=== PATIENT | female | born 1945 | race Caucasian/White ===

== ENCOUNTER → 2018-02-02 15:45 | Outpatient (CLI) | payer OTHER, SELFPAY | PROVIDERS: Family Provider Family Medicine; PCP Family Medicine; Visit Provider Family Medicine | DX: R30.0 Dysuria (principal) | CPT/HCPCS: 87086 ==

== ENCOUNTER 2018-09-10 09:42 | Emergency (ER) | payer OTHER, SELFPAY ==
[2018-09-10 09:45] VITALS: BP 178/97; PULSE 103; RESP 13; TEMP 36.7; O2SAT 100; BMI 23.9
--- NOTE | 2018-09-10 09:57 | ED_ITS ---
HPI - Nausea/Vomiting/Diarrhea General Chief complaint: Nausea/Vomiting/Diarrhea Stated complaint: nausea headache x7 days Time Seen by Provider: 09/10/18 09:52 Source: patient Mode of arrival: ambulatory Limitations: no limitations History of Present Illness HPI Narrative: Patient is a 72-year-old female here for evaluation of sinus congestion and a cough for the past week. She has been seen at the walk-in clinic and was prescribed Tessalon Perles. She was also told to take Flonase. She states these medications have not helped. She also is complaining of a headache and generalized fatigue. She states that 1 time in the past she had a low sodium and she felt similar to this. She states she was drinking some Pedialyte this morning and started to not feel very well some generalized nausea. No specific abdominal pain. She came in for evaluation. Related Data Home Medications Medication Instructions Recorded Confirmed cholecalciferol (vitamin D3) 1 tab PO QDAY #0 10/23/16 09/09/18 [Vitamin D3] ibuprofen 2 tab PO HS #0 08/31/17 09/09/18 acyclovir 800 mg tablet 800 mg PO TID tab 02/02/18 09/09/18 aspirin 81 mg chewable tablet 1 tab PO DAILY tab 02/02/18 09/09/18 Previous Rx's Medication Instructions Recorded lisinopril 10 mg tablet 10 mg PO QDAY #90 tab 02/02/18 gabapentin 300 mg capsule 600 mg PO QDAY #180 cap 06/08/18 benzonatate 100 mg capsule 100 mg PO TID PRN #20 cap 09/09/18 codeine-guaifenesin 5 ml PO Q6H PRN #120 ml 09/10/18 ondansetron 4 mg PO Q6-8H PRN #10 tab 09/10/18 Allergies Allergy/AdvReac Type Severity Reaction Status Date / Time Penicillins [PENICILLINS] AdvReac Intermediate DELAYED Verified 09/10/18 09:54 REACTION OF STOMACH ISSUES Review of Systems Constitutional Reports fatigue, Denies fever(s), Reports headache(s) and Reports lethargy ENT Ears, Nose, Mouth, and Throat: Denies dizziness and Reports headache(s) Cardiovascular Denies chest pain and Denies dyspnea Respiratory Reports cough and Denies dyspnea Gastrointestinal Gastrointestinal: Denies abdominal pain, Denies change in bowel habits, Reports nausea and Denies vomiting Genitourinary Denies dysuria and Denies flank pain Musculoskeletal Reports myalgias and Denies arthralgias Integumentary/Breasts Denies rash Neurologic Denies confusion, Denies dizziness and Reports headache(s) Psychiatric Denies confusion Endocrine Reports fatigue Hematologic/Lymphatic Denies easy bleeding and Denies easy bruising PFSH Medical History Arthritis (Chronic) Herpes (Chronic) Hypertension (Chronic) Raynaud's syndrome (Chronic) Abnormal Pap smear of cervix (Resolved 2000) Campylobacter intestinal infection (Resolved) Giardia (Resolved) UTI (urinary tract infection) (Resolved 2009) Surgical History Status post loop electrosurgical excision procedure (LEEP) of cervix (Resolved 2001) Status post tubal ligation (Resolved) Family History Grandmother Breast cancer Cancer [place] (myocardial infarction) Father [place] (myocardial infarction) Mother MVA (motor vehicle accident) Brother No problems noted. Grandfather Stroke [place] (myocardial infarction) Grandmother Stroke Grandfather Cancer Social History Smoking Status: Former smoker Exam Initial Vital Signs Initial Vital Signs: Vital Signs Temperature 98.1 F 09/10/18 09:45 Pulse Rate 103 H 09/10/18 09:45 Respiratory Rate 13 09/10/18 09:45 Blood Pressure 178/97 H 09/10/18 09:45 Pulse Oximetry 100 09/10/18 09:45 Const General: cooperative, well developed, well groomed and No acute distress Orientation: alert, awake and oriented x3 HENMT Head: normal to inspection and normocephalic Resp Effort & Inspection: normal respiratory effort Auscultation: clear to auscultation bilaterally Cardio Rate: tachycardic Rhythm: regular rhythm Pulses: radial pulses present GI Inspection: non-distended Palpation: soft, No firm and No tender Skin Lesions: no lesions Rashes: no rashes Neuro General: alert, awake and oriented x3 Cognition: normal cognition Speech: speech normal Motor: muscle tone normal throughout Sensory Exam: no sensory deficits noted Extrem General: normal to inspection and capillary refill normal Psych Appearance: grossly normal and well kempt Course Orders Ordered: ED Orders 09/10/18 09:55 Basic Metabolic Panel Stat Complete Blood Count AUTO DIFF Stat 09/10/18 10:16 XR chest 1V Stat Discontinued Medications Acetaminophen (Tylenol) 975 mg PO NOW ONE Stop: 09/10/18 10:16 Last Admin: 09/10/18 10:28 Dose: 975 mg Sodium Chloride (Normal Saline 0.9%) 1,000 mls @ 1,000 mls/hr IV BOLUS ONE Stop: 09/10/18 11:14 Last Admin: 09/10/18 10:29 Dose: 1,000 mls/hr Ondansetron HCl (Zofran) 4 mg IV NOW ONE Stop: 09/10/18 10:16 Last Admin: 09/10/18 10:29 Dose: 4 mg Vital Signs - 8 hr 09/10/18 09:45 09/10/18 11:00 09/10/18 12:05 Temperature 98.1 F Pulse Rate 103 H 86 91 H Respiratory Rate 13 15 21 Blood Pressure 178/97 H Blood Pressure [Right Arm] 150/88 H 140/89 Pulse Oximetry 100 100 100 MDM - Nausea/Vomiting/Diarrhea Lab Data Attestation: I reviewed the patient's lab results. Result diagrams: 09/10/18 09:55 09/10/18 09:55 Lab Results 09/10/18 09/10/18 Range/Units 09:55 09:55 WBC 7.0 (4.5-11.0) X10^3/uL RBC 4.80 (4.0-5.2) X10^6/uL Hgb 15.3 (12.0-16.0) g/dL Hct 43.9 (36-46) % MCV 91.4 (80-100) fL MCH 31.9 (26-34) PG MCHC 34.9 (30-36) % RDW 12.3 (11.6-14.8) % Plt Count 310 (150-400) X10^3/uL Neut % (Auto) 74.3 (50-75) % Lymph % (Auto) 18.8 L (25-40) % [place] % (Auto) 6.1 (3-14) % Eos % (Auto) 0.3 L (2-4) % Baso % (Auto) 0.5 (0-2) % Neut # (Auto) 5200 (4982-5713) /uL Sodium 129 L (137-145) mmol/L Potassium 3.5 (3.4-5.1) mmol/L Chloride 89 L (98-107) mmol/L Carbon Dioxide 25 (22-32) mmol/L BUN 9 (7-17) mg/dL Creatinine 0.50 L (0.52-1.04) mg/dL Estimated GFR > 60.0 (>60) mL/min BUN/Creatinine Ratio 18.0 (6-22) Glucose 150 H (80-110) mg/dL Calcium 9.8 (8.4-10.2) mg/dL Imaging Data Chest x-ray: Radiologist's impression: PROCEDURE: XR CHEST 1V INDICATIONS: Cough and vomiting TECHNIQUE: One view of the chest was acquired. COMPARISON: [facility], CHEST 2 VIEW, 10/21/2007, 8:34. FINDINGS: Surgical changes and devices: None. Lungs and pleura: No pleural effusions or pneumothorax. Lungs are clear. Mediastinum: Mediastinal contours appear normal. Heart size is normal. Bones and chest wall: No suspicious bony lesions. Overlying soft tissues appear unremarkable. IMPRESSION: Normal for age, source of current cough symptoms is not seen. Dictated by: Bernard Gonzalez M.D. on 09/10/2018 at 10:32 Approved by: Bernard Gonzalez M.D. on 09/10/2018 at 10:33 [facility] Narrative Medical decision making narrative: Patient's sodium was slightly low however she states ?it is always low ?chest x-ray shows no signs of pneumonia. She has a benign exam today. I do suspect upper respiratory infection and sinus issues that are causing her headache. Low suspicion for meningitis. We did discuss a head CT however will hold on that for now. Patient is tolerating oral intake. Do not feel that she needs antibiotics. Do not feel she needs admitted to the hospital. We did discuss symptom treatment. She was given return precautions. She expressed understanding and agreement with plan. Discharge Plan Departure Patient Disposition: Home Clinical Impression: Acute upper respiratory infection, Headache, Hyponatremia Instructions: DI for Sinus Headache, DI for Nasal Congestion Activity Restrictions/Additional Instructions: I do recommend that you start taking either Claritin or Cheryl or Zyrtec. You can purchase these medications over the counter. I also recommend that you start taking Flonase or Nasonex these medications could also be purchased over- the-counter. I recommend you stop taking the yellow pills that you were given the other day. Your prescription for nausea medication his as needed. Return to the emergency department for any new or worsening symptoms Prescriptions: New codeine-guaifenesin 10-100 mg/5 mL liquid 5 ml PO Q6H PRN (Reason: cough) Qty: 120 RF: 0 ondansetron 4 mg tablet,disintegrating 4 mg PO Q6-8H PRN (Reason: nausea and vomiting) Qty: 10 RF: 0 No Action acyclovir [Zovirax] 800 mg tablet 800 mg PO TID RF: 0 aspirin 81 mg tablet,chewable 1 tab PO DAILY RF: 0 lisinopril 10 mg tablet 10 mg PO QDAY Qty: 90 RF: 1 benzonatate [Tessalon Perles] 100 mg capsule 100 mg PO TID PRN (Reason: cough) Qty: 20 RF: 0 gabapentin [Neurontin] 300 mg capsule 600 mg PO QDAY Qty: 180 RF: 1 cholecalciferol (vitamin D3) [Vitamin D3] 1,000 UNIT tablet 1 tab PO QDAY Qty: 0 RF: 0 ibuprofen 200 MG tablet 2 tab PO HS Qty: 0 RF: 0
--- NOTE | 2018-09-10 10:16 | DI.RAD.S_ITS ---
PROCEDURE: XR CHEST 1V INDICATIONS: Cough and vomiting TECHNIQUE: One view of the chest was acquired. COMPARISON: [facility], , CHEST 2 VIEW, 10/21/2007, 8:34. FINDINGS: Surgical changes and devices: None. Lungs and pleura: No pleural effusions or pneumothorax. Lungs are clear. Mediastinum: Mediastinal contours appear normal. Heart size is normal. Bones and chest wall: No suspicious bony lesions. Overlying soft tissues appear unremarkable. IMPRESSION: Normal for age, source of current cough symptoms is not seen. Dictated by: Bernard Gonzalez M.D. on 09/10/2018 at 10:32 Approved by: Bernard Gonzalez M.D. on 09/10/2018 at 10:33
[2018-09-10 10:27] LABS: Add Manual Diff / Slide Review NO; Basophils Percent Auto 0.5 % (0-2); Eosinophils Percent Auto 0.3 % (2-4); Hematocrit 43.9 % (36-46); Hemoglobin 15.3 g/dL (12.0-16.0); Lymphocytes Percent Auto 18.8 % (25-40); Mean Corpuscular HGB Conc 34.9 % (30-36); Mean Corpuscular Hemoglobin 31.9 PG (26-34); Mean Corpuscular Volume 91.4 fL (80-100); Monocytes Percent Auto 6.1 % (3-14); Neutrophils Absolute Auto 5200 /uL (1500-7000); Neutrophils Percent Auto 74.3 % (50-75); Platelet Count 310 X10^3/uL (150-400); Red Cell Distribution Width 12.3 % (11.6-14.8)
[2018-09-10] MEDS: ACETAMINOPHEN 325 MG TABLET 975 MG PO (10:28)
[2018-09-10] MEDS: SODIUM CHLORIDE 0.9% 1,000 ML 1000 ML IV (10:29)
[2018-09-10] MEDS: ONDANSETRON 4 MG/2 ML INJ IV (10:29)
[2018-09-10 10:33] LABS: Blood Urea Nitrogen 9 mg/dL (7-17); Calcium 9.8 mg/dL (8.4-10.2); Carbon Dioxide 25 mmol/L (22-32); Chloride 89 mmol/L (98-107); Estimated Glomerular Filt Rate > 60.0 mL/min (>60); Glucose 150 mg/dL (80-110); HEMOLYSIS < 15 (0-50); Potassium 3.5 mmol/L (3.4-5.1); Sodium 129 mmol/L (137-145)
[2018-09-10 11:00] VITALS: BP 150/88; PULSE 86; RESP 15; O2SAT 100
[2018-09-10 12:05] VITALS: BP 140/89; PULSE 91; RESP 21; O2SAT 100
== END 2018-09-10 12:43 | disposition home or self-care (01) ==
PROVIDERS: Emergency Provider Emergency Medicine; Family Provider Family Medicine; PCP Family Medicine
DX: J06.9 Acute upper respiratory infection, unspecified (principal); R51 Headache; E87.1 Hypo-osmolality and hyponatremia
CPT/HCPCS: 36415; 36591; 71045; 80048; 85025; 96361; 96374; 99283; 99284; J2405

== ENCOUNTER → 2018-09-20 10:03 | Outpatient (CLI) | payer OTHER, SELFPAY ==
--- NOTE | 2018-09-20 10:06 | DI.RAD.S_ITS ---
PROCEDURE: XR SACRUM COCCYX MIN 2V INDICATIONS: pelvic pain TECHNIQUE: 3 views of the sacrum and coccyx acquired. COMPARISON: None. FINDINGS: Bones: There is moderate sclerosis of the bilateral sacroiliac joints. No ankylosis. No fracture or dislocation. Soft tissues: Visualized bowel gas pattern is normal. No suspicious soft tissue densities. IMPRESSION: Bilateral sacroiliac joint sclerosis. Dictated by: Macey Wan M.D. on 09/20/2018 at 15:37 Approved by: Macey Wan M.D. on 09/20/2018 at 15:38
== END ==
PROVIDERS: Family Provider Family Medicine; PCP Family Medicine; Visit Provider Physical Medicine & Rehabilitation
DX: R10.2 Pelvic and perineal pain (principal); M53.3 Sacrococcygeal disorders, not elsewhere classified
CPT/HCPCS: 72220

== ENCOUNTER 2018-10-25 08:08 | Outpatient (CLI) | payer OTHER, SELFPAY ==
[2018-10-25] VITALS (9 sets, daily range): BP systolic 116–179; BP diastolic 67–98; PULSE 63–82; RESP 16–20; TEMP 36.3; O2SAT 98–100
--- NOTE | 2018-10-25 08:11 | DI.RAD.S_ITS ---
PROCEDURE: PAIN SI JOINT INJECTION SABAS COMPARISON: None. INDICATIONS: SPINAL STENOSIS FINDINGS: Fluoroscopic spot filming was performed to verify placement of spinal needles at the right and left sacroiliac joint , as labeled on the films. Appropriate location(s) of the needle tip(s) was confirmed by injection of iodinated contrast. Dictated by: Michael Romero M.D. on 10/25/2018 at 11:08 Approved by: Michael Romero M.D. on 10/25/2018 at 11:11
[2018-10-25] MEDS: MIDAZOLAM 5 MG/5 ML VIAL IV (09:10)
[2018-10-25] MEDS: BUPIVACAINE 0.5% (PF) VIAL 2 ML INJ (09:16)
[2018-10-25] MEDS: BETAMETHASONE 30 MG/5 ML MDV 12 MG INJ (09:17)
[2018-10-25] MEDS: IOPAMIDOL 15 ML VIAL 3 ML INJ (09:17)
--- NOTE | 2018-10-25 09:26 | PM.PROC.1 ---
Procedures Date/Time Date of procedure: 10/25/18 Time of procedure: 09:26 General Procedure description: PREOP Dx: Sacroiliac joint pain/DJD POST OP DX: Sacroiliac Joint Pain/DJD Procedures: Fluoroscopic guided contrast controlled bilateral sacroiliac joint injectiona Physician: Berry Adam D.O. Indications: Angelica is referred by Dr. Barnett for treatment of right sacroiliac joint DJD Description of procedure Fluoroscopic guided, contrast controlled right sacroiliac joint injection Following denial of allergies and review of potential side effects and complications, including, but not necessarily limited to, infection, allergic reaction, local tissue breakdown, temporary as well as permanent nerve injury, paralysis, stroke and possible , the patient indicated that they understood and agreed to proceed. An informed consent was signed by the patient, witnessed by a nurse, and placed in the patient's chart. Additionally, other treatment options including modalities, medications, and physical therapy were reviewed with the patient. After review of previous anaesthesic history and IV conscious sedation the patient was deemed safe to proceed with todays procedure with IV conscious sedation as ASA class II designation. Safety time-out was performed to confirm patient ID, procedure to be performed and site of procedure. IV sedation was accomplished with a combination of 3mg was administered by the RN after DO order, titrated to patient comfort during the course of the procedure while the patient remained responsive to all verbal commands In the prone position following sterile prep and drape of the pelvic region, the hyper lucency on in the inferior aspect of the sacroiliac joint was identified fluoroscopically the skin was anesthetized be a 25 gauge 1 eventual with approximately 2 cc of 1% lidocaine solution. At this point, a 22 gauge 3 in spinal needle was atraumatically introduced and advanced under fluoroscopic guidance into the inferior aspect of the right sacroiliac joint. Following negative aspiration, approximately 0.3 cc of Isovue-300 was injected confirming intra-articular placement without vascular uptake. Radiographic data, including multiple fluoroscopic views of the pelvis, reveals a spinal needle in the sacroiliac joint hyper lucent zone. Subsequent view show flow contrast tear superiorly and inferiorly within the joint capsule without vascular intrathecal uptake. At this point a total of 1 cc or 0 8 of 0.5% Marcaine was combined with 1 cc of 6 mg of betamethasone was injected without incident. Attention was then refocused to the left sacroliac joint where the procedure was replicated. The procedure tolerated the procedure well without signs or symptoms of complications prior to transfer to the recovery area continued monitoring without incident. The patient was then transferred to the recovery area with a bur observed for an appropriate time after the injection. The patient reverted a vas score of 7 prior to the procedure and postprocedure vas of 1. Total fluoroscopy time: 22.7 sec Total conscious sedation time: 24 min Postop instructions The patient was provided with a pain like to continue to record the patient's response to the target specific procedure prior to the patient's follow-up visit with the referring physician. Additionally, specific post injection care instructions and a contact number to our office were provided if concerns arise regarding the possible complications associated with procedure are suspected. Berry Adam D.O. Complications: none
--- NOTE | 2018-10-26 12:36 | PC.NURSE ---
FOLLOW UP CALL MADE, PT C/O CONTINUED PAIN THAT HAS NOT SUBSIDED AND FEELS THE SAME BEFORE THE PROCEDURE. I EXPLAINED TO HER THAT IT IS COMMON TO HAVE PAIN THE NIGHT OF AND DAY AFTER PROCEDURE BUT ENCOURAGED HER TO CALL THE CLINIC IF BY NEXT WEEK THE PAIN HAD NOT DECREASED. PT VERBALIZED UNDERSTANDING OF THESE INSTRUCTIONS AND DENIED OTHER QUESTIONS/CONCERNS.
== END 2018-10-25 09:50 ==
LOC: RAD 08:10
PROVIDERS: PCP Family Medicine; Visit Provider Physical Medicine & Rehabilitation
DX: M53.3 Sacrococcygeal disorders, not elsewhere classified (principal); M47.898 Other spondylosis, sacral and sacrococcygeal region; M48.07 Spinal stenosis, lumbosacral region
CPT/HCPCS: 27096; 99152; J0702; J2250

== ENCOUNTER 2018-12-27 14:27 | Outpatient (CLI) | payer OTHER, SELFPAY ==
[2018-12-27] VITALS (7 sets, daily range): BP systolic 115–180; BP diastolic 79–97; PULSE 64–74; RESP 16–18; TEMP 36.4; O2SAT 97–100
--- NOTE | 2018-12-27 14:30 | DI.RAD.S_ITS ---
PROCEDURE: PAIN L/S TRANSFORAMINAL INJECT INDICATIONS: SPINAL STENOSIS FINDINGS: Fluoroscopic spot filming was performed to verify placement of spinal needles at the L4-5 facet joint level, as labeled on the films. Appropriate location(s) of the needle tip(s) was confirmed by injection of iodinated contrast. IMPRESSION: Successful left-sided L4-5 facet localization for steroid injection. Dictated by: Bernard Gonzalez M.D. on 12/27/2018 at 17:38 Approved by: Bernard Gonzalez M.D. on 12/27/2018 at 17:38
[2018-12-27] MEDS: fentaNYL 100 MCG/2 ML INJ 50 MCG IV (15:20)
[2018-12-27] MEDS: MIDAZOLAM 5 MG/5 ML VIAL IV (15:20)
[2018-12-27] MEDS: BUPIVACAINE 0.25% (PF) VIAL 2 ML INJ (15:27)
[2018-12-27] MEDS: DEXAMETHASONE 10 MG/ML VIAL 20 MG INJ (15:27)
[2018-12-27] MEDS: IOPAMIDOL 15 ML VIAL 3 ML INJ (15:27)
--- NOTE | 2018-12-27 15:36 | PC.NURSE ---
pt tolerated procedure well. Able to get pt off the table with standby assist. Transferred the pt to pre procedure room via wheelchair for continued monitoring with Briana SERRANO.
--- NOTE | 2018-12-27 15:50 | P.PCN_ITS ---
Procedures Date/Time Date of procedure: 12/27/18 Time of procedure: 15:48 General Procedure description: PREOP DIAGNOSIS 1. FORMAINAL STENOSIS WITH LE SYMPTOMS POST OP DIAGNOSIS 1. FORMAINAL STENOSIS WITH LE SYMPTOMS PROCEDURES 1. FLUOROSCOPICALLY GUIDED CONTRAST CONTROLLED TRANSFORAMINAL EPIDURAL STEROID INJECTION - LEFT L4/5 PHYSICIAN: Berry Adam DO INDICATIONS: Angelica is referred by Dr. Barnett for treatment of Foraminal Stenosis with Left LE Symptoms FINDINGS Foraminal Nerve Root Compression secondary to disc disease and facet hypertrophy DESCRIPTION OF PROCEDURE: Following denial of allergy and review of potential side effects and complications, including, but not necessarily limited to, infection, allergic reaction, local tissue breakdown, stroke, temporary or permanent nerve injury, paralysis, and possible , the patient indicated that the patient understood and agreed to proceed. An informed consent document was signed by the patient, witnessed by a nurse, and placed in the patient's chart. Additionally, other treatment options including medications, modalities, and physical therapy were reviewed with the patient. After review of previous anaesthesic history and IV conscious sedation the patie nt was deemed safe to proceed with todays procedure with IV conscious sedation as ASA class II designation. Safety time-out was performed to confirm patient ID, procedure to be performed and site of procedure. IV sedation was accomplished with a combination of 4mg of Versed and 50mcg of Fentanyl was administered by the RN after DO order, titrated to patient comfort during the course of the procedure while the patient remained responsive to all verbal commands In the prone position following sterile prep and drape of the lumbar region, the left L4/5 posterior neuroforamen was identified fluoroscopically. The skin was anesthetized via a 25-gauge 1.5-inch needle with 1% lidocaine solution. At this point, a 25-gauge 3.5-inch spinal needle was atraumatically introduced and advanced under fluoroscopic guidance through the posterior left L4/5 neuroforamen to approximately the anterior aspect of the canal. Depth was confirmed on lateral view. Following negative aspiration, injection of approximately 1.5 cc of Isovue 200 under live fluoroscopy in the AP view confirmed excellent flow along the nerve root, into the epidural space without vascular or intrathecal uptake observed Radiological data, including multiple fluoroscopic views of the lumbosacral spine, reveal a spinal needle at the left L4/5 posterior neuroforamen. Subsequent views show flow of contrast material flowing superiorly and inferiorly along the nerve root confirming epidural flow. Subsequently, a test dose of 1.5 cc of 1% lidocaine solution was administered and patient was observed for two minutes for signs or symptoms of complications, including abdominal pain, shortness of breath, bilateral upper or lower extremity weakness, nausea and vomiting, prior to steroid injection. At this point, a total of 2cc or 20mg of dexamethasone was injected without incident. The procedure tolerated the procedure well without signs or symptoms of complications prior to transfer to the recovery area continued monitoring without incident. The patient was then transferred to the recovery area where they were observed for an appropriate time after the injection. The patient reported a VAS score of 7 prior to the procedure and a post- procedure VAS of 0. Total Fluoroscopy Time: 20.9 seconds Total Conscious Sedation Time: 24min POST OP INSTRUCTIONS The patient was provided a Pain Log to continue to record their response to the target-specific procedure prior to follow-up visit with their referring physician. Additionally, specific post-injection care instructions and a contact number to our office were provided if concerns arise regarding possible complications associated with the procedure are suspected. Berry Adam DO Complications: none
--- NOTE | 2018-12-28 12:16 | PC.NURSE ---
Follow up call post L4/5 Transforaminal MAYRA, left message as pt did not answer the phone.
== END 2018-12-27 16:20 | disposition home or self-care (01) ==
LOC: RAD 14:29
PROVIDERS: PCP Family Medicine; Visit Provider Physical Medicine & Rehabilitation
DX: M47.817 Spondylosis without myelopathy or radiculopathy, lumbosacral region (principal); M48.07 Spinal stenosis, lumbosacral region
CPT/HCPCS: 64483; 99152; J1100; J2250; J3010

== ENCOUNTER → 2019-01-03 09:15 | Outpatient (CLI) | payer OTHER, SELFPAY ==
--- NOTE | 2019-01-03 09:16 | DI.MG.S_ITS ---
BILATERAL DIGITAL SCREENING MAMMOGRAM 3D/2D WITH CAD: 01/03/2019 CLINICAL: Routine screening. Family history of breast cancer. Comparison is made to exams dated: 12/30/2017 mammogram, 12/10/2016 mammogram, and 12/10/2015 mammogram - [facility]. There are scattered fibroglandular elements in both breasts. Current study was also evaluated with a Computer Aided Detection (CAD) system. No significant masses, calcifications, or other findings are seen in either breast. There has been no significant interval change. IMPRESSION: NEGATIVE There is no mammographic evidence of malignancy. A 1 year screening mammogram is recommended. This exam was interpreted at Station ID: [id number]. NOTE: For mammograms, a report in lay terms will be sent to the patient. Approximately 15% of breast malignancies will not be visualized mammographically. In the management of a palpable breast mass, a negative mammogram must not discourage biopsy of a clinically suspicious lesion. Electronically Signed By: Dao muñoz/renee:01/03/2019 12:22:34 letter sent: Normal Exam ACR BI-RADS Category 1: Negative [id number]
== END ==
PROVIDERS: PCP Family Medicine; Visit Provider Family Medicine
DX: Z12.31 Encounter for screening mammogram for malignant neoplasm of breast (principal); Z80.3 Family history of malignant neoplasm of breast
CPT/HCPCS: 77063; 77067

== ENCOUNTER → 2019-01-05 08:22 | Outpatient (CLI) | payer OTHER, SELFPAY ==
[2019-01-05 09:21] LABS: Add Manual Diff / Slide Review NO; Basophils Absolute Auto 0 /uL (0-100); Basophils Percent Auto 0.9 % (0-2); Eosinophils Absolute Auto 100 /uL (0-450); Eosinophils Percent Auto 3.2 % (2-4); Hematocrit 42.5 % (36-46); Hemoglobin 14.5 g/dL (12.0-16.0); Lymphocytes Absolute Auto 1200 /uL (1100-4500); Lymphocytes Percent Auto 33.2 % (25-40); Mean Corpuscular Hemoglobin 31.7 PG (26-34); Mean Corpuscular Volume 93.1 fL (80-100); Monocytes Absolute Auto 400 /uL (0-900); Neutrophils Absolute Auto 1900 /uL (1500-7000); Neutrophils Percent Auto 52.7 % (50-75); Platelet Count 228 X10^3/uL (150-400); Red Blood Cell Count 4.56 X10^6/uL (4.0-5.2); Red Cell Distribution Width 13.1 % (11.6-14.8); White Blood Cell Count 3.6 X10^3/uL (4.5-11.0)
[2019-01-05 09:47] LABS: Alanine Aminotransferase 27 IU/L (9-52); Albumin 4.5 g/dL (3.5-5.0); Albumin Globulin Ratio 1.8 (1.0-2.8); Alkaline Phosphatase 56 U/L (38-126); Aspartate Aminotransferase 26 IU/L (14-36); BUN Creatinine Ratio 23.8 (6-22); Bilirubin Total 0.7 mg/dL (0.2-1.3); Blood Urea Nitrogen 19 mg/dL (7-17); Calcium 9.6 mg/dL (8.4-10.2); Carbon Dioxide 30 mmol/L (22-32); Chloride 94 mmol/L (98-107); Cholesterol 250 mg/dL (140-199); Estimated Glomerular Filt Rate > 60.0 mL/min (>60); Globulin 2.5 g/dL (1.7-4.1); Glucose 81 mg/dL (80-110); HDL Cholesterol 82 mg/dL (40-60); HEMOLYSIS < 15 (0-50); LDL Cholesterol Calculated 151 mg/dL (<100); Potassium 4.1 mmol/L (3.4-5.1); Sodium 130 mmol/L (137-145); Triglycerides 85 mg/dL (35-150)
[2019-01-05 10:36] LABS: Thyroid Stimulating Hormone 1.26 uIU/mL (0.47-4.68)
[2019-01-05 11:31] LABS: Hemoglobin A1C% w Est Avg Glu 5.4 % (4.0-6.0)
== END ==
PROVIDERS: PCP Family Medicine; Visit Provider Family Medicine
DX: I10 Essential (primary) hypertension (principal); R73.09 Other abnormal glucose; R73.9 Hyperglycemia, unspecified; Z51.81 Encounter for therapeutic drug level monitoring
CPT/HCPCS: 36415; 80053; 80061; 83036; 84443; 85025

== ENCOUNTER → 2019-09-08 15:39 | Outpatient (CLI) | payer OTHER, SELFPAY ==
[2019-09-08 17:14] LABS: Add Manual Diff / Slide Review NO; Basophils Absolute Auto 0 /uL (0-100); Basophils Percent Auto 0.8 % (0-2); Eosinophils Absolute Auto 100 /uL (0-450); Eosinophils Percent Auto 2.5 % (2-4); Hemoglobin 14.2 g/dL (12.0-16.0); Lymphocytes Absolute Auto 1800 /uL (1100-4500); Lymphocytes Percent Auto 33.5 % (25-40); Mean Corpuscular HGB Conc 33.9 % (30-36); Mean Corpuscular Hemoglobin 32.1 PG (26-34); Mean Corpuscular Volume 94.7 fL (80-100); Monocytes Absolute Auto 400 /uL (0-900); Monocytes Percent Auto 8.3 % (3-14); Neutrophils Absolute Auto 2900 /uL (1500-7000); Neutrophils Percent Auto 54.9 % (50-75); Platelet Count 211 X10^3/uL (150-400); Red Blood Cell Count 4.44 X10^6/uL (4.0-5.2); Red Cell Distribution Width 13.5 % (11.6-14.8); White Blood Cell Count 5.2 X10^3/uL (4.5-11.0)
[2019-09-08 17:24] LABS: BUN Creatinine Ratio 34.3 (6-22); Blood Urea Nitrogen 24 mg/dL (7-17); Calcium 9.7 mg/dL (8.4-10.2); Carbon Dioxide 28 mmol/L (22-32); Chloride 95 mmol/L (98-107); Estimated Glomerular Filt Rate > 60.0 mL/min (>60); Glucose 82 mg/dL (80-110); HEMOLYSIS < 15 (0-50); Potassium 4.5 mmol/L (3.4-5.1); Sodium 133 mmol/L (137-145); Uric Acid 3.8 mg/dL (2.5-6.2)
[2019-09-08 17:35] LABS: Erythrocyte Sedimentation Rate 4 MM/HR (0-20)
== END ==
PROVIDERS: PCP Family Medicine; Visit Provider Family Medicine
DX: M79.676 Pain in unspecified toe(s) (principal); M19.90 Unspecified osteoarthritis, unspecified site; I10 Essential (primary) hypertension
CPT/HCPCS: 36415; 80048; 84550; 85025; 85651

== ENCOUNTER → 2019-10-16 09:44 | Outpatient (CLI) | payer OTHER, SELFPAY ==
[2019-10-18 15:25] LABS: Fecal Immunochemical Test NOT DETECTED (NOT DETECTED)
== END ==
PROVIDERS: PCP Student in an Organized Health Care Education/Training Program; Referring Provider Student in an Organized Health Care Education/Training Program; Visit Provider Student in an Organized Health Care Education/Training Program
DX: Z12.11 Encounter for screening for malignant neoplasm of colon (principal)
CPT/HCPCS: 82274

== ENCOUNTER → 2019-12-06 08:59 | Outpatient (CLI) | payer OTHER, SELFPAY ==
[2019-12-06 09:41] LABS: Alanine Aminotransferase 20 IU/L (<35); Albumin 4.8 g/dL (3.5-5.0); Albumin Globulin Ratio 1.7 (1.0-2.8); Alkaline Phosphatase 69 U/L (38-126); Aspartate Aminotransferase 32 IU/L (14-36); BUN Creatinine Ratio 30.4 (6-22); Bilirubin Total 0.4 mg/dL (0.2-1.3); Blood Urea Nitrogen 24 mg/dL (7-17); Calcium 9.8 mg/dL (8.4-10.2); Carbon Dioxide 29 mmol/L (22-32); Chloride 96 mmol/L (98-107); Estimated Glomerular Filt Rate > 60.0 mL/min (>60); Globulin 2.8 g/dL (1.7-4.1); Glucose 77 mg/dL (80-110); HEMOLYSIS < 15 (0-50); Potassium 5.2 mmol/L (3.4-5.1); Sodium 133 mmol/L (137-145); Total Protein 7.6 g/dL (6.3-8.2)
== END ==
PROVIDERS: PCP Student in an Organized Health Care Education/Training Program; Referring Provider Student in an Organized Health Care Education/Training Program; Visit Provider Student in an Organized Health Care Education/Training Program
DX: I10 Essential (primary) hypertension (principal); Z79.899 Other long term (current) drug therapy
CPT/HCPCS: 36415; 80053

== ENCOUNTER 2020-03-18 08:29 | Emergency (ER) | payer OTHER, SELFPAY ==
--- NOTE | 2020-03-18 08:51 | DI.RAD.S_ITS ---
PROCEDURE: XR FOREARM RT 2V INDICATIONS: fall to arm, swelling noted in FA TECHNIQUE: 2 views of the forearm were acquired. COMPARISON: None. FINDINGS: Bones: No fractures or dislocations. No suspicious bony lesions. Soft tissues: No suspicious soft tissue calcifications or masses. IMPRESSION: No fracture. No osseous lesion. If symptoms and/or clinical suspicion for pathology persists, further assessment with repeat radiographs (7-10 days) or advanced imaging (e.g. CT, MRI or bone scan) may be helpful. Dictated by: Lindsay Newby MD, PhD on 03/18/2020 at 9:35 Approved by: Lindsay Newby MD, PhD on 03/18/2020 at 9:36
--- NOTE | 2020-03-18 08:51 | DI.RAD.S_ITS ---
PROCEDURE: XR ELBOW RT MIN 3V INDICATIONS: fall to arm, swelling noted in FA TECHNIQUE: 3 views of the elbow were acquired. COMPARISON: None. FINDINGS: Bones: No fractures or dislocations. No suspicious bony lesions. Soft tissues: No elbow joint effusion. No suspicious soft tissue calcifications. IMPRESSION: No acute fractures of the right elbow. Dictated by: Maged Ruggiero M.D. on 03/18/2020 at 8:24 Approved by: Maged Ruggiero M.D. on 03/18/2020 at 8:25
[2020-03-18 08:53] VITALS: BP 185/97; PULSE 74; RESP 16; TEMP 36.7; O2SAT 100; BMI 24.3
--- NOTE | 2020-03-18 09:00 | DI.RAD.S_ITS ---
PROCEDURE: XR RIBS RT MIN 3V W CXR 1V INDICATIONS: fall on ribs, pain TECHNIQUE: 2 views of the right ribs were acquired, along with a single view chest. COMPARISON: [facility], , XR CHEST 1V, 09/10/2018, 10:38. FINDINGS: Surgical changes and devices: None. Bones and chest wall: No fractures or dislocations. No suspicious bony lesions. Overlying soft tissues appear unremarkable. S-shaped scoliotic curvature is seen. Age-appropriate bony degenerative changes are seen. Lungs and pleura: No pleural effusions or pneumothorax. Lungs appear clear. Mediastinum: Mediastinal contours appear normal. Heart size is normal. IMPRESSION: No displaced rib fracture or pneumothorax can be seen on the right side. If there is strong clinical concern for intrathoracic trauma, then please consider a dedicated chest CT with IV contrast for further evaluation. Dictated by: Junaid Moore M.D. on 03/18/2020 at 8:54 Approved by: Junaid Moore M.D. on 03/18/2020 at 8:57
[2020-03-18] MEDS: ONDANSETRON 4 MG ODT SL (09:47)
[2020-03-18] MEDS: HYDROMORPHONE 1 MG INJ IM (09:47)
[2020-03-18 10:02] LABS: Add Manual Diff / Slide Review NO; Basophils Absolute Auto 0 /uL (0-100); Basophils Percent Auto 0.4 % (0-2); Eosinophils Absolute Auto 0 /uL (0-450); Eosinophils Percent Auto 0.8 % (2-4); Hematocrit 41.9 % (36-46); Hemoglobin 14.4 g/dL (12.0-16.0); Lymphocytes Absolute Auto 1200 /uL (1100-4500); Lymphocytes Percent Auto 20.3 % (25-40); Mean Corpuscular HGB Conc 34.4 % (30-36); Mean Corpuscular Hemoglobin 32.3 PG (26-34); Monocytes Absolute Auto 300 /uL (0-900); Monocytes Percent Auto 5.5 % (3-14); Neutrophils Absolute Auto 4200 /uL (1500-7000); Platelet Count 189 X10^3/uL (150-400); Red Blood Cell Count 4.46 X10^6/uL (4.0-5.2); Red Cell Distribution Width 13.4 % (11.6-14.8); White Blood Cell Count 5.8 X10^3/uL (4.5-11.0)
[2020-03-18 10:13] LABS: BUN Creatinine Ratio 32.8 (6-22); Blood Urea Nitrogen 21 mg/dL (7-17); Calcium 9.6 mg/dL (8.4-10.2); Carbon Dioxide 28 mmol/L (22-32); Chloride 96 mmol/L (98-107); Estimated Glomerular Filt Rate > 60.0 mL/min (>60); Glucose 104 mg/dL (80-110); HEMOLYSIS < 15 (0-50); Potassium 4.2 mmol/L (3.4-5.1); Sodium 130 mmol/L (137-145)
[2020-03-18 10:22] LABS: Prothrombin Time 11.8 SECONDS (10.1-12.7)
[2020-03-18 10:25] LABS: PTT Partial Thromboplastin Tim 35 SECONDS (26.4-36.2)
--- NOTE | 2020-03-18 10:35 | ED.TRAUMA ---
HPI - Trauma General Chief Complaint: Extremity Injury, Upper Stated Complaint: injured right arm Time Seen by Provider: 03/18/20 09:14 Source: patient Mode of arrival: Ambulatory Limitations: no limitations History of Present Illness HPI narrative: CC: Trip and fall injuring her right arm. HPI: The patient is a 74-year-old female who was hiking and walking on a trail with her using 2 walking sticks when she tripped and fell over a root and landed on her right arm and walking stick. She denies striking her head or injuring her neck. She denied any back pain. She however has some degree of chronic back pain. She complains complaining that she injured her left ribs and had some mild shortness of breath. She states that it hurts to breathe. She denies being dizzy or lightheaded. She had no loss of consciousness. She denies any abdominal pain nausea or vomiting. She sustained a hematoma to her right forearm and an abrasion to her right elbow and right arm. Her last tetanus shot was greater than 10 years ago. The patient complains that her arm pain is 6/10 in intensity in her chest pain was 7/10 in intensity. She denied any incontinence of urine or stool. She had no nausea no vomiting no fever chills or sweats and no significant shortness of breath. Related Data Home Medications Medication Instructions Recorded Confirmed cholecalciferol (vitamin D3) 1 tab PO QDAY #0 10/23/16 12/20/19 [Vitamin D3] acetaminophen 650 mg 650 mg PO ONCE 01/03/19 12/20/19 tablet,extended release Previous Rx's Medication Instructions Recorded valsartan 80 mg tablet 80 mg PO DAILY #90 tab 10/06/19 efinaconazole 10 % topical 1 applictn TOP DAILY #8 ml 12/20/19 solution with applicator celecoxib 200 mg capsule 200 mg PO DAILY #90 cap 01/03/20 acyclovir 400 mg tablet 400 mg PO DAILY #90 tab 01/31/20 gabapentin 600 mg tablet 600 mg PO DAILY #90 tab 02/27/20 cyclobenzaprine 10 mg PO TID PRN #15 tab 03/18/20 hydrocodone-acetaminophen [Fairhaven] 1 tab PO Q4-6H PRN #15 tab 03/18/20 lidocaine [Lidoderm] 2 patch TOP DAILY #15 each 03/18/20 Allergies Allergy/AdvReac Type Severity Reaction Status Date / Time Penicillins [PENICILLINS] AdvReac Intermediate DELAYED Verified 12/20/19 13:15 REACTION OF STOMACH ISSUES terbinafine AdvReac Intermediate Erythema Verified 12/20/19 13:32 multiforme Review of Systems Review of Systems Narrative: Review of systems were all negative except for those mentioned in the history of present illness. Patient History Medical History Abnormal Pap smear of cervix (Resolved 2000) Arthritis (Chronic) Campylobacter intestinal infection (Resolved) Giardia (Resolved) Herpes (Chronic) Hypertension (Chronic) Raynaud's syndrome (Chronic) UTI (urinary tract infection) (Resolved 2009) Surgical History S/P total hip arthroplasty (Resolved) Status post loop electrosurgical excision procedure (LEEP) of cervix (Resolved 2001) Status post tubal ligation (Resolved) Family History Grandmother Breast cancer Cancer ID (myocardial infarction) Father ID (myocardial infarction) Mother MVA (motor vehicle accident) Brother No problems noted. Grandfather Stroke ID (myocardial infarction) Grandmother Stroke Grandfather Cancer Social History Smoking Status: Former smoker Smoking Status: Former smoker alcohol intake frequency: 0-2 drinks per day Substance Use Type: does not use Exam Narrative Exam Narrative: PHYSICAL EXAM: CONSTITUTIONAL: Awake, Alert, Oriented, Coherent, Cooperative in NAD. Does not appear toxic or ill. HEAD: AT/NC EENT: PERRL, FROM of eyes, no discharge,. NOSE:No epistaxis or nasal drainage MOUTH:Oral mucosa is moist and pink, posterior pharynx is without erythema or exudate. NECK: Supple, no obvious JVD, Trachea is midline without stridor, no palpable LN. SPINE: Palpation of the cervical, Thoracic, Lumbar or Sacral spine reveals no gross deformity or tenderness. No CVA tenderness. THORAX: No deformity, retractions. Right lower lateral ribs are tender. LUNGS: Clear, symmetrical breath sounds without respiratory distress. HEART: Normal heart tones, regular rhythm and rate without murmur. ABDOMEN: Soft, non-tender, no guarding, rebound, rigidity or palpable mass. LYMPHATIC: no palpable lymph nodes or spleen. EXTREMITIES: The patient is able to flex her right elbow. She has an abrasion over the ulnar aspect of the proximal forearm just distal to the elbow and an elliptical hematoma over the ulna and more distally has a deeper abrasion over her forearm. SKIN: No other rash, bruising, petechiae or purpura noted NEURO: Awake, alert, oriented, conversive, cranial nerves II-XII are symmetrical , moves all 4 extremities and is ambulatory. MENTAL HEALTH: Does not appear anxious or depressed. Initial Vital Signs Initial Vital Signs: Vital Signs Temperature 98.1 F 03/18/20 08:53 Pulse Rate 74 03/18/20 08:53 Respiratory Rate 16 03/18/20 08:53 Blood Pressure 185/97 H 03/18/20 08:53 Pulse Oximetry 100 03/18/20 08:53 Course Course Course Narrative: 1030: The patient's x-rays were read by Radiology and there were no rib fractures and no fractures of the arm. The patient will be treated as outlined. Orders Ordered: Discontinued Medications Bacitracin (Bacitracin) 1 applic TOP NOW ONE Stop: 03/18/20 10:24 Hydromorphone HCl (Dilaudid) 1 mg IM NOW ONE Stop: 03/18/20 09:33 Last Admin: 03/18/20 09:47 Dose: 1 mg Documented by: CAITIE Ondansetron HCl (Zofran Odt) 4 mg SL NOW ONE Stop: 03/18/20 09:33 Last Admin: 03/18/20 09:47 Dose: 4 mg Documented by: CAITIE Vital Signs Vital signs: Vital Signs - 8 hr 03/18/20 08:53 Temperature 98.1 F Pulse Rate 74 Respiratory Rate 16 Blood Pressure 185/97 H Pulse Oximetry 100 MDM - Trauma Lab Data Result diagrams: 03/18/20 09:52 03/18/20 09:52 Labs: Lab Results 03/18/20 03/18/20 03/18/20 Range/Units 09:52 09:52 10:10 WBC 5.8 (4.5-11.0) X10^3/uL RBC 4.46 (4.0-5.2) X10^6/uL Hgb 14.4 (12.0-16.0) g/dL Hct 41.9 (36-46) % MCV 94.0 (80-100) fL MCH 32.3 (26-34) PG MCHC 34.4 (30-36) % RDW 13.4 (11.6-14.8) % Plt Count 189 (150-400) X10^3/uL Neut % (Auto) 73.0 (50-75) % Lymph % (Auto) 20.3 L (25-40) % [place] % (Auto) 5.5 (3-14) % Eos % (Auto) 0.8 L (2-4) % Baso % (Auto) 0.4 (0-2) % Neut # (Auto) 4200 (9627-8833) /uL Lymph # (Auto) 1200 (1417-9475) /uL [place] # (Auto) 300 (0-900) /uL Eos # (Auto) 0 (0-450) /uL Baso # (Auto) 0 (0-100) /uL PT 11.8 (10.1-12.7) SECONDS INR 1.0 (0.9-1.3) APTT 35 (26.4-36.2) SECONDS Sodium 130 L (137-145) mmol/L Potassium 4.2 (3.4-5.1) mmol/L Chloride 96 L (98-107) mmol/L Carbon Dioxide 28 (22-32) mmol/L BUN 21 H (7-17) mg/dL Creatinine 0.64 (0.52-1.04) mg/dL Estimated GFR > 60.0 (>60) mL/min BUN/Creatinine Ratio 32.8 H (6-22) Glucose 104 (80-110) mg/dL Calcium 9.6 (8.4-10.2) mg/dL Discharge Plan Departure Patient Disposition: Home Clinical Impression: Traumatic injury of rib, Abrasion Arm injury Qualifiers: Encounter type: initial encounter Laterality: right Qualified Code(s): S49.91XA - Unspecified injury of right shoulder and upper arm, initial encounter Hematoma of arm Qualifiers: Encounter type: initial encounter Laterality: right Qualified Code(s): S40.021A - Contusion of right upper arm, initial encounter Discharge Date/Time: 03/18/20 10:51 Instructions: DI for Rib Fracture, DI for Rib Contusion, DI for Hematoma (Bruise), DI for Abrasion Activity Restrictions/Additional Instructions: 1. If your pain does not improve you need to be rechecked in 48-72 hours. You can return to the emergency department or follow-up with your primary care physician. 2. Use the sling for your right arm for pain and discomfort as a comfort measure. 3. Apply cold compresses to the hematoma and the bruise over your right arm. 4. Wash the abrasions over your right elbow and forearm in the shower with soap and water pat dry apply a triple antibiotic and cover with a bandage. 5. Wrap your hematoma with an Iain wrap. 6. Use the Fairhaven for severe pain and discomfort as prescribed. Use the dicyclomine as a muscle relaxant. Apply the Lidoderm patch directly over the area of your rib and chest tenderness and discomfort. 7. If you develop worsening pain fever passing-out, abdominal pain nausea vomiting you need to return to the emergency department. Prescriptions: New hydrocodone-acetaminophen [Fairhaven] 5-325 mg tablet 1 tab PO Q4-6H PRN (Reason: pain) Qty: 15 RF: 0 cyclobenzaprine 10 mg tablet 10 mg PO TID PRN (Reason: muscle spasm) Qty: 15 RF: 0 lidocaine [Lidoderm] 5 % adhesive patch,medicated 2 patch TOP DAILY Qty: 15 RF: 0 No Action cholecalciferol (vitamin D3) [Vitamin D3] 1,000 UNIT tablet 1 tab PO QDAY Qty: 0 RF: 0 celecoxib [Celebrex] 200 mg capsule 200 mg PO DAILY Qty: 90 RF: 3 acyclovir 400 mg tablet 400 mg PO DAILY Qty: 90 RF: 3 gabapentin 600 mg tablet 600 mg PO DAILY Qty: 90 RF: 3 acetaminophen [Tylenol Arthritis Pain] 650 mg tablet extended release 650 mg PO ONCE RF: 0 valsartan [Diovan] 80 mg tablet 80 mg PO DAILY Qty: 90 RF: 3 efinaconazole 10 % solution with applicator 1 applictn TOP DAILY Qty: 8 RF: 5 Referrals: Nabor Jensen MD [Primary Care Provider] -
[2020-03-18 10:53] VITALS: BP 209/93; PULSE 74; RESP 16; TEMP 36.7; O2SAT 100
== END 2020-03-18 10:51 | disposition home or self-care (01) ==
PROVIDERS: Emergency Provider Emergency Medicine; PCP Student in an Organized Health Care Education/Training Program
DX: S49.91XA Unspecified injury of right shoulder and upper arm, initial encounter (principal); S40.021A Contusion of right upper arm, initial encounter; S50.311A Abrasion of right elbow, initial encounter; S40.811A Abrasion of right upper arm, initial encounter; W01.0XXA Fall on same level from slipping, tripping and stumbling without subsequent striking against object, initial encounter; Y93.01 Activity, walking, marching and hiking
CPT/HCPCS: 36415; 71101; 73080; 73090; 80048; 85025; 85610; 85730; 96372; 99284; J1170

== ENCOUNTER → 2020-04-25 15:13 | Outpatient (CLI) | payer OTHER, SELFPAY ==
--- NOTE | 2020-04-25 15:15 | DI.MG.S_ITS ---
BILATERAL DIGITAL SCREENING MAMMOGRAM 3D/2D WITH CAD: 04/25/2020 CLINICAL: Routine screening. Family history of breast cancer. Comparison is made to exams dated: 01/03/2019 mammogram, 12/30/2017 mammogram, 12/29/2016 mammogram, 11/29/2014 mammogram, and 12/10/2015 mammogram - Located [facility]. There are scattered fibroglandular elements in both breasts. Current study was also evaluated with a Computer Aided Detection (CAD) system. No significant masses, calcifications, or other findings are seen in either breast. There has been no significant interval change. IMPRESSION: NEGATIVE There is no mammographic evidence of malignancy. A 1 year screening mammogram is recommended. This exam was interpreted at Station ID: [id number]. NOTE: For mammograms, a report in lay terms will be sent to the patient. Approximately 15% of breast malignancies will not be visualized mammographically. In the management of a palpable breast mass, a negative mammogram must not discourage biopsy of a clinically suspicious lesion. Electronically Signed By: Dao muñoz/renee:04/25/2020 17:22:08 letter sent: Normal Exam ACR BI-RADS Category 1: Negative 3341F
== END ==
PROVIDERS: PCP Student in an Organized Health Care Education/Training Program; Referring Provider Student in an Organized Health Care Education/Training Program; Visit Provider Student in an Organized Health Care Education/Training Program
DX: Z12.31 Encounter for screening mammogram for malignant neoplasm of breast (principal); Z80.3 Family history of malignant neoplasm of breast; Z13.820 Encounter for screening for osteoporosis; M81.0 Age-related osteoporosis without current pathological fracture; Z78.0 Asymptomatic menopausal state; Z91.89 Other specified personal risk factors, not elsewhere classified; Z87.891 Personal history of nicotine dependence
CPT/HCPCS: 77063; 77067; 77080

== ENCOUNTER → 2020-12-04 10:49 | Outpatient (CLI) | payer OTHER, SELFPAY ==
[2020-12-04 12:00] LABS: Appearance Urine UA CLEAR; Bilirubin Urine UA NEGATIVE (NEGATIVE); Color Urine UA YELLOW; Glucose Urine UA NEGATIVE (Negative); Ketones Urine UA NEGATIVE (NEGATIVE); Leukocyte Esterase Urine UA 2+ (NEGATIVE); Nitrite Urine UA NEGATIVE (Negative); Occult Blood Urine UA 3+ (Negative); Protein Urine UA NEGATIVE (Negative); Specific Gravity Urine UA 1.015 (1.000-1.035); Urobilinogen Urine UA 0.2 E.U./dL (0.2)
[2020-12-04 12:07] LABS: Amorphous Sediment Urine 1+; RBC Urine 1-5/HPF (0-5/HPF); WBC Urine 10-30/HPF (0-5/HPF)
[2020-12-04 12:08] LABS: Bacteria Urine Moderate (10-30); Culture Indicated Urine Specimen Cultured
== END ==
PROVIDERS: PCP Student in an Organized Health Care Education/Training Program; Referring Provider Student in an Organized Health Care Education/Training Program; Visit Provider Student in an Organized Health Care Education/Training Program
DX: R30.0 Dysuria (principal)
CPT/HCPCS: 81001; 87077; 87086; 87186

== ENCOUNTER → 2021-07-07 15:27 | Outpatient (CLI) | payer OTHER, SELFPAY ==
--- NOTE | 2021-07-07 | DI.MG.S_ITS ---
BILATERAL DIGITAL SCREENING MAMMOGRAM 3D/2D WITH CAD: 07/07/2021 Comparison is made to exams dated: 04/25/2020 mammogram, 01/03/2019 mammogram, and 12/30/2017 mammogram - [facility]. There are scattered fibroglandular elements in both breasts. Current study was also evaluated with a Computer Aided Detection (CAD) system. No significant masses, calcifications, or other findings are seen in either breast. There has been no significant interval change. IMPRESSION: NEGATIVE There is no mammographic evidence of malignancy. A 1 year screening mammogram is recommended. This exam was interpreted at Station ID: [id number]. NOTE: For mammograms, a report in lay terms will be sent to the patient. Approximately 15% of breast malignancies will not be visualized mammographically. In the management of a palpable breast mass, a negative mammogram must not discourage biopsy of a clinically suspicious lesion. Electronically Signed By: Cassidy blair/renee:07/07/2021 17:21:43 letter sent: Normal Exam ACR BI-RADS Category 1: Negative 3341F
== END ==
PROVIDERS: PCP Student in an Organized Health Care Education/Training Program; Referring Provider Student in an Organized Health Care Education/Training Program; Visit Provider Student in an Organized Health Care Education/Training Program
DX: Z12.31 Encounter for screening mammogram for malignant neoplasm of breast (principal)
CPT/HCPCS: 77063; 77067

== ENCOUNTER → 2021-10-30 08:48 | Outpatient (CLI) | payer OTHER, SELFPAY ==
--- NOTE | 2021-10-30 | DI.MRI.S_ITS ---
PROCEDURE: MR LUMBAR SPINE WO CON INDICATIONS: pelvic and perineal pain TECHNIQUE: Noncontrast sagittal T1 spin echo and T2 fast echo, sagittal STIR, axial T1 and T2 fast spin echo through the lumbar spine. In cases with scoliosis, additional coronal T2 fast spin echo may be performed. COMPARISON: None. FINDINGS: Image quality: Excellent. Alignment and Curvature: There is normal bony alignment. There is approximately 18? of convex right lumbar spine scoliosis. Bone Marrow: Mixed Modic type 1 and type 2 reactive endplate changes noted adjacent to the T12-L1, L1-L2, L3-L4, L4-L5 and L5-S1 discs. Type 2 reactive endplate changes noted adjacent to the L2-L3 disc. No acute vertebral body compression fractures. Spinal Cord: Conus medullaris terminates at the L1 level. Visualized cord demonstrates normal signal and size. Paraspinous Soft Tissues: No paravertebral masses. T12-L1: Loss of disc signal and height. Mild to moderate diffuse disc bulge. Mild narrowing of the central canal. Moderate right and mild left neural foraminal narrowing. No neural compression. L1-L2: Loss of disc signal and height. Mild to moderate diffuse disc bulge. Mild narrowing of the central canal. Mild right moderate left neural foraminal narrowing. No neural compression. L2-L3: Loss of disc signal and height. Moderate, diffuse disc bulge. Mild bilateral facet hypertrophy. Mild to moderate narrowing of the central canal. Mild right and moderate left neural foraminal narrowing. No neural compression. L3-L4: Loss of disc signal and slight loss of disc height. Mild, diffuse disc bulge. Wcfb-jb-vgcghwec facet hypertrophy. Mild to moderate narrowing of the central canal. Mild bilateral neural foraminal narrowing. No neural compression. L4-L5: Loss of disc signal and height. Moderate, diffuse disc bulge. Mild right and moderate left facet hypertrophy. Moderate narrowing of the central canal. Severe right and moderate left neural foraminal narrowing with slight compression of the exiting right L5 nerve root. L5-S1: Loss of disc signal and height. Mild, diffuse disc bulge. Mild bilateral facet hypertrophy. No central stenosis. Severe right and mild left neural foraminal narrowing with compression of the exiting right L5 nerve root. IMPRESSION: 1. Convex right scoliosis. 2. Multilevel degenerative disc disease. 3. Multilevel facet arthropathy. 4. No severe central canal narrowing. 5. Severe right L4-L5 and L5-S1 neural foraminal narrowing with compression of the exiting right L4 and L5 nerve roots. Dictated by: Lindsay Newby MD, PhD on 10/30/2021 at 13:30 Approved by: Lindsay Newby MD, PhD on 10/30/2021 at 13:35
== END ==
PROVIDERS: PCP Student in an Organized Health Care Education/Training Program; Referring Provider Pain Medicine Pain Medicine; Visit Provider Pain Medicine Pain Medicine
DX: M41.86 Other forms of scoliosis, lumbar region (principal); M51.36 Other intervertebral disc degeneration, lumbar region; M51.37 Other intervertebral disc degeneration, lumbosacral region; M47.816 Spondylosis without myelopathy or radiculopathy, lumbar region; M47.817 Spondylosis without myelopathy or radiculopathy, lumbosacral region; M48.061 Spinal stenosis, lumbar region without neurogenic claudication; M48.07 Spinal stenosis, lumbosacral region; R10.2 Pelvic and perineal pain
CPT/HCPCS: 72148

== ENCOUNTER → 2021-11-20 12:42 | Outpatient (CLI) | payer OTHER, SELFPAY ==
--- NOTE | 2021-11-20 | DI.MRI.S_ITS ---
PROCEDURE: MR PELVIS WO CON INDICATIONS: CHRONIC PERINEAL PAIN TECHNIQUE: Noncontrast coronal and axial T1 spin echo and STIR through the bony pelvis. COMPARISON: [facility] [place], CR, XR PELVIS WITH LATERAL HIP RIGHT, 03/11/2018, 8:06. [facility] [place], CR, XR PELVIS WITH LATERAL HIP RIGHT, 11/26/2017, 8:14. FINDINGS: Image quality: There is magnetic susceptibility artifact from patient's right hip prosthesis. Bones: Bone marrow of the pelvic ring and proximal femurs demonstrate normal overall signal. No bone contusions or fractures. There is a small region of periprosthetic T2 hyperintensity lateral to the prosthesis in the right greater trochanter. No avascular necrosis of the femoral head. The visualized lower lumbar spine demonstrates moderate degenerative disc disease at the lumbosacral junction. Tendons: The gluteus medius and minimus tendons appear intact bilaterally. There is mild fatty atrophy of the gluteus minimus muscles also noted bilaterally. The proximal iliotibial band also appears intact. The iliopsoas tendon appears intact, without adjacent bursal fluid collections or evidence for impingement syndrome. The origin of the hamstring tendon is intact at the ischial tuberosity on the left. On the right, there is a small amount of peritendinous edema adjacent to its origin on the right greater trochanter suggestive of peritendinitis with minimal partial tearing at its origin. The straight and reflected heads of the rectus femoris muscle origin appear intact, as well as the conjoint tendon. Soft tissues: There is a small region of mild bone marrow edema in the right card radius from as muscle between the ischial tuberosity and femur which may reflect ischiofemoral impingement. Visualized muscles otherwise demonstrate normal bulk and internal signal. No joint effusions. No discrete peroneal mass identified. No free pelvic fluid. Bladder wall thickness is normal. Bowel loops appear normal where visualized. The uterus is mildly atrophic in size, within normal limits for age. No adnexal masses identified. IMPRESSION: 1. No discrete peroneal mass identified. 2. Mild edema in the right quadratus femoris muscle suggestive of ischiofemoral impingement. 3. Peritendinous edema along the origin of the right hamstring tendons compatible with peritendinitis with mild partial tearing at its origin. 4. Small region of nonspecific periprosthetic T2 hyperintensity in the right greater trochanter along the lateral margin of the prosthesis. The finding is of indeterminate clinical history and significance. Loosening or infection cannot be fully excluded and correlation is recommended clinically as well as a repeat x-ray if indicated. Dictated by: Star Quintero M.D. on 11/20/2021 at 17:28 Transcribed by: SHANNON on 11/20/2021 at 17:28 Approved by: Star Quintero M.D. on 11/20/2021 at 23:33
== END ==
PROVIDERS: PCP Student in an Organized Health Care Education/Training Program; Referring Provider Pain Medicine Pain Medicine; Visit Provider Pain Medicine Pain Medicine
DX: R10.2 Pelvic and perineal pain (principal); R60.0 Localized edema
CPT/HCPCS: 72195

== ENCOUNTER → 2022-02-02 07:27 | Outpatient (CLI) | payer OTHER, SELFPAY ==
[2022-02-02 14:33] LABS: Clostridium Difficile Tox PCR Negative for C. diff (Negative)
[2022-02-04 16:13] LABS: Calprotectin, Stool 54 ug/g (0-120)
== END ==
PROVIDERS: PCP Student in an Organized Health Care Education/Training Program; Referring Provider Student in an Organized Health Care Education/Training Program; Visit Provider Student in an Organized Health Care Education/Training Program
DX: R10.9 Unspecified abdominal pain (principal); R19.5 Other fecal abnormalities
CPT/HCPCS: 83993; 87045; 87177; 87493; 87899

== ENCOUNTER → 2022-07-09 10:21 | Outpatient (CLI) | payer OTHER, SELFPAY ==
--- NOTE | 2022-07-09 | DI.MG.S_ITS ---
BILATERAL DIGITAL SCREENING MAMMOGRAM 3D/2D WITH CAD: 07/09/2022 CLINICAL: Routine screening. Family history of breast cancer. Comparison is made to exams dated: 07/07/2021 mammogram, 04/25/2020 mammogram, and 01/03/2019 mammogram - [facility]. There are scattered areas of fibroglandular density in both breasts (category b / 25%-50% glandular tissue). Current study was also evaluated with a Computer Aided Detection (CAD) system. No significant masses, calcifications, or other findings are seen in either breast. There has been no significant interval change. IMPRESSION: NEGATIVE There is no mammographic evidence of malignancy. A 1 year screening mammogram is recommended. Based on the Tyrer Cuzick model (a risk assessment model) the patient's lifetime risk is 3.5% and her 10 year risk is 0.0%. According to the ACR, ACS, and NCCN guidelines, an annual breast MRI exam along with mammogram is recommended if the patient's lifetime risk is 20% or greater. This exam was interpreted at Station ID: [id number]. NOTE: For mammograms, a report in lay terms will be sent to the patient. Approximately 15% of breast malignancies will not be visualized mammographically. In the management of a palpable breast mass, a negative mammogram must not discourage biopsy of a clinically suspicious lesion. Electronically Signed By: Stanislaw reilly/renee:07/09/2022 16:01:44 letter sent: Normal Exam ACR BI-RADS Category 1: Negative 3341F
== END ==
PROVIDERS: PCP Student in an Organized Health Care Education/Training Program; Referring Provider Student in an Organized Health Care Education/Training Program; Visit Provider Student in an Organized Health Care Education/Training Program
DX: Z12.31 Encounter for screening mammogram for malignant neoplasm of breast (principal); Z80.3 Family history of malignant neoplasm of breast
CPT/HCPCS: 77063; 77067

== ENCOUNTER → 2022-08-08 09:04 | Outpatient (CLI) | payer OTHER, SELFPAY | PROVIDERS: PCP Student in an Organized Health Care Education/Training Program; Visit Provider Physician Assistant | DX: R30.0 Dysuria (principal) | CPT/HCPCS: 87077; 87086; 87186 ==

== ENCOUNTER → 2023-02-11 14:01 | Outpatient (CLI) | payer OTHER, SELFPAY ==
[2023-02-11 15:05] LABS: Add Manual Diff / Slide Review NO; Basophils Absolute Auto 0 /uL (0-100); Basophils Percent Auto 0.9 % (0-2); Eosinophils Absolute Auto 100 /uL (0-450); Hematocrit 40.7 % (36-46); Hemoglobin 14.1 g/dL (12.0-16.0); Lymphocytes Absolute Auto 1400 /uL (1100-4500); Lymphocytes Percent Auto 25.9 % (25-40); Mean Corpuscular HGB Conc 34.7 % (30-36); Mean Corpuscular Volume 92.2 fL (80-100); Monocytes Absolute Auto 400 /uL (0-900); Monocytes Percent Auto 8.6 % (3-14); Neutrophils Absolute Auto 3300 /uL (1500-7000); Neutrophils Percent Auto 62.6 % (50-75); Platelet Count 216 X10^3/uL (150-400); Red Blood Cell Count 4.42 X10^6/uL (4.0-5.2); White Blood Cell Count 5.2 X10^3/uL (4.5-11.0)
[2023-02-11 15:21] LABS: Alanine Aminotransferase 27 IU/L (<35); Albumin 4.3 g/dL (3.5-5.0); Albumin Globulin Ratio 1.7 (1.0-2.8); Alkaline Phosphatase 62 U/L (38-126); Aspartate Aminotransferase 34 IU/L (14-36); BUN Creatinine Ratio 22.2 (6-22); Bilirubin Total 0.4 mg/dL (0.2-1.3); Blood Urea Nitrogen 20 mg/dL (7-17); Calcium 9.1 mg/dL (8.4-10.2); Carbon Dioxide 31 mmol/L (22-32); Chloride 95 mmol/L (98-107); Estimated Glomerular Filt Rate > 60 mL/min (>60); Globulin 2.6 g/dL (1.7-4.1); Glucose 92 mg/dL (80-110); HEMOLYSIS < 15 (0-50); Potassium 4.1 mmol/L (3.4-5.1); Sodium 132 mmol/L (137-145); Total Protein 6.9 g/dL (6.3-8.2)
[2023-02-11 16:03] LABS: TSH w/ Reflex to FT4 0.95 uIU/mL (0.47-4.68)
== END ==
PROVIDERS: PCP Pediatrics; Referring Provider Pediatrics; Visit Provider Pediatrics
DX: I10 Essential (primary) hypertension (principal); Z00.00 Encounter for general adult medical examination without abnormal findings
CPT/HCPCS: 36415; 80053; 84443; 85025

== ENCOUNTER → 2023-02-16 13:27 | Outpatient (CLI) | payer OTHER, SELFPAY ==
[2023-02-17 14:54] LABS: Fecal Immunochemical Test Negative (Negative)
== END ==
PROVIDERS: PCP Pediatrics; Referring Provider Pediatrics; Visit Provider Pediatrics
DX: Z12.11 Encounter for screening for malignant neoplasm of colon (principal)
CPT/HCPCS: 82274

== ENCOUNTER → 2023-07-01 12:55 | Outpatient (CLI) | payer OTHER, SELFPAY ==
--- NOTE | 2023-07-01 12:56 | DI.RAD.S_ITS ---
PROCEDURE: XR ABDOMEN 1V INDICATIONS: constipation TECHNIQUE: One view of the abdomen acquired. COMPARISON: None. FINDINGS: Surgical changes and devices: None. Bowel: Bowel gas pattern is normal. Moderate amount of stool throughout the colon. Soft tissues: No suspicious abdominal calcifications. Visualized solid organ contours appear normal in size. Bones: No suspicious bony lesions. Partially visualized right hip arthroplasty. Lumbar spine degenerative disc disease, facet arthropathy and convex right scoliosis. IMPRESSION: Moderate colonic fecal loading. Dictated by: Lindsay Newby MD, PhD on 07/01/2023 at 13:22 Approved by: Lindsay Newby MD, PhD on 07/01/2023 at 13:23
== END ==
PROVIDERS: PCP Family Medicine; Referring Provider Family Medicine; Visit Provider Family Medicine
DX: K59.04 Chronic idiopathic constipation (principal)
CPT/HCPCS: 74018

== ENCOUNTER → 2023-09-18 07:56 | Outpatient (CLI) | payer OTHER, SELFPAY ==
--- NOTE | 2023-09-18 | DI.MG.S_ITS ---
BILATERAL DIGITAL SCREENING MAMMOGRAM 3D/2D WITH CAD: 09/18/2023 CLINICAL: Routine screening. Family history of breast cancer. Comparison is made to exams dated: 07/09/2022 mammogram, 07/07/2021 mammogram, and 04/25/2020 mammogram - [facility]. There are scattered areas of fibroglandular density in both breasts (category b / 25%-50% glandular tissue). Current study was also evaluated with a Computer Aided Detection (CAD) system. No significant masses, calcifications, or other findings are seen in either breast. There has been no significant interval change. IMPRESSION: NEGATIVE There is no mammographic evidence of malignancy. A 1 year screening mammogram is recommended. Based on the Tyrer Cuzick model (a risk assessment model) the patient's lifetime risk is 3.1% and her 10 year risk is 0.0%. According to the ACR, ACS, and NCCN guidelines, an annual breast MRI exam along with mammogram is recommended if the patient's lifetime risk is 20% or greater. This exam was interpreted at Station ID: [id number]. NOTE: For mammograms, a report in lay terms will be sent to the patient. Approximately 15% of breast malignancies will not be visualized mammographically. In the management of a palpable breast mass, a negative mammogram must not discourage biopsy of a clinically suspicious lesion. Electronically Signed By: Dao muñoz/renee:09/20/2023 07:36:17 letter sent: Normal Exam ACR BI-RADS Category 1: Negative 3341F
== END ==
LOC: MAMMO 07:56
PROVIDERS: PCP Family Medicine; Referring Provider Family Medicine; Visit Provider Family Medicine
DX: Z12.31 Encounter for screening mammogram for malignant neoplasm of breast (principal); Z80.3 Family history of malignant neoplasm of breast
CPT/HCPCS: 77063; 77067

== ENCOUNTER → 2024-10-22 09:53 | Outpatient (CLI) | payer OTHER, SELFPAY ==
--- NOTE | 2024-10-22 09:54 | DI.MG.S_ITS ---
BILATERAL DIGITAL SCREENING MAMMOGRAM 3D/2D WITH CAD: 10/22/2024 CLINICAL: Routine screening. Family history of breast cancer. Comparison is made to exams dated: 09/18/2023 mammogram, 07/09/2022 mammogram, and 07/07/2021 mammogram - [facility]. There are scattered areas of fibroglandular density (category b / 25%-50% glandular tissue). Current study was also evaluated with a Computer Aided Detection (CAD) system. No significant masses, calcifications, or other findings are seen in either breast. There has been no significant interval change. IMPRESSION: NEGATIVE There is no mammographic evidence of malignancy. A 1 year screening mammogram is recommended. Based on the Tyrer Cuzick model (a risk assessment model) the patient's lifetime risk is 2.7% and her 10 year risk is 0.0%. According to the ACR, ACS, and NCCN guidelines, an annual breast MRI exam along with mammogram is recommended if the patient's lifetime risk is 20% or greater. This exam was interpreted at Station ID: [id number]. NOTE: For mammograms, a report in lay terms will be sent to the patient. Approximately 15% of breast malignancies will not be visualized mammographically. In the management of a palpable breast mass, a negative mammogram must not discourage biopsy of a clinically suspicious lesion. Electronically Signed By: Dao muñoz/renee:10/23/2024 08:35:14 letter sent: Normal Exam ACR BI-RADS Category 1: Negative
== END ==
PROVIDERS: PCP Family Medicine; Referring Provider Family Medicine; Visit Provider Family Medicine
DX: Z12.31 Encounter for screening mammogram for malignant neoplasm of breast (principal); Z80.3 Family history of malignant neoplasm of breast
CPT/HCPCS: 77063; 77067

== ENCOUNTER → 2025-01-16 07:05 | Outpatient (CLI) | payer OTHER, SELFPAY ==
[2025-01-16 07:56] LABS: Add Manual Diff / Slide Review NO; Basophils Absolute Auto 0 /uL (0-100); Basophils Percent Auto 0.9 % (0-2); Eosinophils Absolute Auto 200 /uL (0-450); Eosinophils Percent Auto 4.9 % (2-4); Hemoglobin 14.1 g/dL (12.0-16.0); Lymphocytes Absolute Auto 1900 /uL (1100-4500); Lymphocytes Percent Auto 44.9 % (25-40); Mean Corpuscular HGB Conc 33.5 % (30-36); Mean Corpuscular Hemoglobin 31.2 PG (26-34); Mean Corpuscular Volume 93.3 fL (80-100); Monocytes Absolute Auto 400 /uL (0-900); Monocytes Percent Auto 9.2 % (3-14); Neutrophils Absolute Auto 1700 /uL (1500-7000); Neutrophils Percent Auto 40.1 % (50-75); Platelet Count 206 X10^3/uL (150-400); Red Cell Distribution Width 13.8 % (11.6-14.8); White Blood Cell Count 4.3 X10^3/uL (4.5-11.0)
[2025-01-16 08:27] LABS: Alanine Aminotransferase 23 IU/L (<35); Albumin 4.4 g/dL (3.5-5.0); Albumin Globulin Ratio 2.2 (1.0-2.8); Alkaline Phosphatase 60 U/L (38-126); Aspartate Aminotransferase 32 IU/L (14-36); BUN Creatinine Ratio 29.7 (6-22); Bilirubin Total 0.8 mg/dL (0.2-1.3); Blood Urea Nitrogen 22 mg/dL (7-17); Calcium 9.6 mg/dL (8.4-10.2); Carbon Dioxide 29 mmol/L (22-32); Chloride 96 mmol/L (98-107); Cholesterol 243 mg/dL (140-199); Estimated Glomerular Filt Rate > 60 mL/min (>60); Glucose 94 mg/dL (70-99); HDL Cholesterol 86 mg/dL (40-60); HEMOLYSIS < 15 (0-50); LDL Cholesterol Calculated 141 mg/dL (<100); Potassium 4.5 mmol/L (3.4-5.1); Sodium 130 mmol/L (137-145); Total Protein 6.4 g/dL (6.3-8.2); Triglycerides 80 mg/dL (35-150)
== END ==
PROVIDERS: PCP Family Medicine; Referring Provider Family Medicine; Visit Provider Family Medicine
DX: I10 Essential (primary) hypertension (principal); Z13.1 Encounter for screening for diabetes mellitus
CPT/HCPCS: 36415; 80053; 80061; 85025

== ENCOUNTER → 2025-01-18 12:51 | Outpatient (CLI) | payer OTHER, SELFPAY ==
[2025-01-18 15:27] LABS: Microalbumin Urine Random < 0.6 mg/dL (0-1.6)
[2025-01-18 15:30] LABS: Creatinine Urine Random 15.61 mg/dL; Sodium Urine Random 77 mmol/L (30-90)
[2025-01-19 13:12] LABS: Osmolality Urine 263 mOsmol/kg (.); Osmolality, Serum 286 mOsmol/kg (280-301)
== END ==
PROVIDERS: PCP Family Medicine; Referring Provider Family Medicine; Visit Provider Family Medicine
DX: Z13.1 Encounter for screening for diabetes mellitus (principal); E87.1 Hypo-osmolality and hyponatremia; I10 Essential (primary) hypertension
CPT/HCPCS: 36415; 82043; 82570; 83930; 83935; 84300

== ENCOUNTER → 2025-05-29 11:57 | Outpatient (CLI) | payer OTHER, SELFPAY ==
[2025-06-05 15:09] LABS: ANA Screen, IFA Negative (.)
== END ==
PROVIDERS: PCP Family Medicine; Referring Provider Family Medicine; Visit Provider Family Medicine
DX: M53.3 Sacrococcygeal disorders, not elsewhere classified (principal); G58.8 Other specified mononeuropathies; I73.00 Raynaud's syndrome without gangrene
CPT/HCPCS: 36415; 85651; 86038; 86140; 86200; 86430